=== PATIENT | female | born 1960 | race Caucasian/White ===

== ENCOUNTER 2021-05-20 08:24 | Emergency (ER) | payer OTHER ==
[~2021-05-20] VITALS: Ht 170.2 cm; Wt 81.8 kg
[~2021-05-20 08:24] MED LIST: HYDR200T72 PO; METH4TAB PO
--- NOTE | 2021-05-20 08:37 | NUR ---
PT BIB EMS FOR GLF. PT WAS WALKING HER DOG AND WAS PULLED BY THE DOG AND SHE SLIPPED ON THE WET GRASS AND FELL. PT DENIES LOC OR ANY OTHER PHYSICAL INJURIES. PT LEFT ANKLE SPLINTED BY EMS WHO REPORTS LEFT ANKLE DEORMITY AND SWELLING. PT REC'VD 100MCG FENTANYL BY EMS [employer]. PIVE BY EMS [employer].
[2021-05-20] MEDS ORDERED: ONDANSETRON 2MG/ML, 2ML IVPush ONE (09:00)
[2021-05-20] MEDS ORDERED: SODIUM CHLORIDE FLUSH 10ML SYR IVF ONE (09:00)
[2021-05-20] MEDS ORDERED: PROPOFOL 10 MG/ML, 20ML IVPush ONE ×2 (09:00→11:00)
[2021-05-20 09:19] LABS: BASOPHILS % (AUTO) 1 % (0-1); EOSINOPHILS % (AUTO) 1 % (1-7); LYMPHOCYTES % (AUTO) 28 % (22-44); MEAN CORPUSCULAR HEMOGLOBIN 31.5 pg (27.0-34.8); MEAN CORPUSCULAR HGB CONC 34.6 g/dL (32.4-35.8); MEAN PLATELET VOLUME 8.5 fL (7.4-10.4); MONOCYTES % (AUTO) 8 % (2-9); NEUTROPHILS % (AUTO) 62 % (42-75); PLATELET COUNT 283 x10^3/uL (130-400)
[2021-05-20 09:24] LABS: ALBUMIN 3.8 g/dL (3.4-5.0); ANION GAP 8 mmol/L (5-15); CALCIUM 8.9 mg/dL (8.5-10.1); CHLORIDE 107 mmol/L (98-107); CREATININE 0.73 mg/dL (0.55-1.02)
[2021-05-20] MEDS ORDERED: ONDANSETRON 2MG/ML, 2ML ONE (09:26)
[2021-05-20] MEDS ORDERED: PROPOFOL 10 MG/ML, 20ML ONE ×3 (09:26→11:16)
--- NOTE | 2021-05-20 09:31 | NUR ---
CONSCIOUS SEDATION STARTED. SEE PAPERWORK FOR ADDITIONAL.
--- NOTE | 2021-05-20 09:39 | NUR ---
SPLINT IN PLACE, COMPLETED BY TECH
[2021-05-20] MEDS ORDERED: MORPHINE SULFATE 4 MG/ML, 1ML IVPush ONE (10:00)
[2021-05-20] MEDS ORDERED: SODIUM CHLORIDE 0.9%, 500ML IVBOLUS ONE (10:30)
[2021-05-20] MEDS ORDERED: MORPHINE SULFATE 4 MG/ML, 1ML ONE (10:34)
--- NOTE | 2021-05-20 11:20 | NUR ---
SECOND CONSCIOUS SEDATION PROCEDURE STARTED.
--- NOTE | 2021-05-20 12:57 | NUR ---
PT AND PT DAUGHTER REC'VD DISCHARGE INSTRUCTIONS AND EDUCATION. PT HAD NO FURTHER QUESTIONS. PT IN WHEELCHAIR TO DC AREA.
--- NOTE | 2021-05-20 13:13 | NUR ---
PT BECAME PALE, DIAPHORETIC, AND FEELING WEAK WHILE WAITING IN DC AREA. PT REQUESTED TO GO BACK TO ROOM. PT PLACED BACK IN ROOM. PT PROVIDED CRACKERS AND JUICE PT HAS NOT EATEN TODAY. PT'S DAUGHTER BEDSIDE. 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 NO SEIZURE ACTIVITY WITNESSED.
--- NOTE | 2021-05-20 13:41 | NUR ---
PT DISCHARGED HOME WITH FAMILY AND ASSISTED BY THIS RN INTO CAR. NO DIZZINESS AT THIS TIME.
[2021-05-20 13:42] VITALS: BP 132/78
== END 2021-05-20 13:48 | disposition home or self-care (01) ==
LOC: ED 11:11
DX: S82.452A Displaced comminuted fracture of shaft of left fibula, initial encounter for closed fracture (principal); S82.252A Displaced comminuted fracture of shaft of left tibia, initial encounter for closed fracture; Z90.49 Acquired absence of other specified parts of digestive tract; W18.30XA Fall on same level, unspecified, initial encounter; Y93.89 Activity, other specified; Y92.009 Unspecified place in unspecified non-institutional (private) residence as the place of occurrence of the external cause; Y99.8 Other external cause status
CPT/HCPCS: 27752; 36415; 73600; 80048; 82040; 85025; 96361; 96374; 96375; 99285; J2270; J2405; J7040